=== PATIENT | male | born 1975 | race Caucasian/White ===

== ENCOUNTER → 2016-09-13 | Outpatient (CLI) | payer MEDICAID ==
--- NOTE | 2016-09-13 23:10 | MR ---
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 FINDINGS: The anterior and posterior glenoid tracy appear intact. Subscapularis tendon is intact. Biceps tendon is intact. There is no subacromial impingement. I see no bony destructive process. There are small d egenerative cysts at the greater tuberosity of the humerus. There is abnormal increased signal on the T2 images in the supraspinatus tendon at the greater tuberosity without retraction. AC joint appears intact. IMPRESSION: There is a full-thickness tear of the supraspinatus tendon near the insertion on the greater tuberosi ty of the humerus. No fracture. No retraction. Small degenerative cysts in a greater tuberosity.
== END | disposition home or self-care (01) ==
LOC: RADMRIMAIN 16:58
PROVIDERS: ATTEND Orthopaedic Surgery
DX: M75.101 Unspecified rotator cuff tear or rupture of right shoulder, not specified as traumatic (principal); M85.611 Other cyst of bone, right shoulder

== ENCOUNTER → 2016-09-15 | Outpatient (CLI) | payer MEDICAID ==
--- NOTE | 2016-09-18 08:27 | XR ---
EXAMINATION TYPE: XR shoulder complete RT DATE OF EXAM: 09/15/2016 2:52 PM CLINICAL HISTORY: pain TECHNIQUE: Three views of the right shoulder are obtained. COMPARISON: None FINDINGS: There is no acute fracture/dislocation evident. The acromioclavicular and glenohumeral wilfrid int spaces appear within normal limits. The visualized ribs are intact and unremarkable. IMPRESSION: 1. There is no acute fracture or dislocation. ICD 10 NO FRACTURE, INITIAL EVALUATION
== END | disposition home or self-care (01) ==
LOC: RADXRYALE 14:19
PROVIDERS: ATTEND Orthopaedic Surgery
DX: M75.41 Impingement syndrome of right shoulder (principal); M65.811 Other synovitis and tenosynovitis, right shoulder; M62.511 Muscle wasting and atrophy, not elsewhere classified, right shoulder

== ENCOUNTER → 2019-02-04 | Outpatient (CLI) | payer MEDICAID ==
--- NOTE | 2019-02-04 14:36 | XR ---
EXAMINATION TYPE: XR chest 2V DATE OF EXAM: 02/04/2019 COMPARISON: NONE HISTORY: Cough for 5 days TECHNIQUE: Frontal and lateral views of the chest are obtained. FINDINGS: There is a focal hazy opacity of the lingula. There is no pulmonary vascular congestion, p leural effusion, or pneumothorax seen. The cardiac silhouette size is within normal limits. The os seous structures are intact. Mild multilevel degenerative changes of the thoracic spine. IMPRESSION: Lingular airspace disease may represent developing pneumonia or atelectasis.
== END | disposition home or self-care (01) ==
LOC: RADXRYALE 14:18
PROVIDERS: ATTEND Physician Assistant Medical
DX: J98.4 Other disorders of lung (principal); R05 Cough
CPT/HCPCS: 71046

== ENCOUNTER → 2019-02-12 | Outpatient (CLI) | payer MEDICAID ==
--- NOTE | 2019-02-12 10:27 | XR ---
EXAMINATION TYPE: XR chest 2V DATE OF EXAM: 02/12/2019 COMPARISON: 02/04/2019 HISTORY: Follow-up for pneumonia. TECHNIQUE: Frontal and lateral views of the chest are obtained. FINDINGS: There is near complete resolution of the retrocardiac opacity with minimal vague linear ai rspace disease, likely atelectasis. Remainder the lungs are clear. Cardiomediastinal silhouette is wi thin normal limits. Osseous structures appear grossly intact. IMPRESSION: Near complete resolution of the previously seen left basilar pneumonia with minimal line ar opacity remaining, likely residual atelectasis.
== END | disposition home or self-care (01) ==
LOC: RADXRYALE 09:59
PROVIDERS: ATTEND Physician Assistant Medical
DX: R91.8 Other nonspecific abnormal finding of lung field (principal); J18.1 Lobar pneumonia, unspecified organism
CPT/HCPCS: 71046